=== PATIENT | female | born 1935 | race Caucasian/White ===

== ENCOUNTER 2019-07-27 11:42 | Emergency (ER) | payer MEDICARE ==
--- OUTSIDE RECORDS SUMMARY | 2019-07-27 11:54 | XMS REPORT | Continuity of Care Document ---
:1935 External Reference #:[id number] Author Name Jose G Unger D.O. Address [address] [place] [id number] Care Team Providers Name Role Phone Wali Gallo MD - Neurology Care Team Information Hat Copyist [phone] Delfina Branham MD - Neurology Care Team Information Hat Copyist [facility] - Otolaryngology Care Team Information Hat Copyist [phone] [facility] - Ophthalmology Care Team Information Hat Copyist Problems Active Problems Provider Date Pure hypercholesterolemia Kathia Douglass MD Onset: 01/27/2009 Zenker's diverticulum Azam Jerome M.D. Onset: 10/20/2014 Osteochondropathy Azam Jerome M.D. Onset: 04/16/2010 Diverticular disease of colon Azam Jerome M.D. Onset: 11/24/2010 History of malignant neoplasm of uterine Azam Jerome M.D. 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 Onset: 02/03 Acquired diverticulum of esophagus Azam Jerome M.D. Onset: 05/29/2015 Cognitive disorder Azam Jerome M.D. Onset: 11/27/2015 Note: due to stroke Residual cognitive deficit as late effect Azam Jerome M.D. 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 875-125mg Tablets Vitamin B-12 1 sublingual 90tabs Jose G Unger, 06/21/2019 3000mcg vitamin b12 daily D.O. Tablets Sub Dorzolamide Instill One Drop In Unknown 05/16/2019 HCL/Timolol Maleate Each Eye Two Times A Day To Replace 22.3-6.8mg/ml Combigan Solution Freestyle Lite Blood or any other 1units E11.65 Jose G Unger, 11/27/2018 Glucose Monitoring covered glucometer D.O. System by her insurance. Device Freestyle Precision 1-4 times daily as 100units E11.65 Jose G Unger, 09/2018 Juan Miguel Blood Glucose directed D.O. Test Strips Strips Lancet Device With use with lancets 4 1units E11.65 Jose G Unger, 2018 Ejector times daily to D.O. [facility] check blood glucose with home monitor Lancets Micro Thin use 1-4 times daily 100units E11.65 Jose G Unger, 09/2018 33G as directed D.O. Thin 33G [facility] Multivitamins 1 po qd 100tabs Unknown 10/14/2018 Tablets Polyethylene Glycol 1/2-1 capful in 8 500gm K59.00 Jose G Unger, 2016 1000 oz water daily as D.O. Powder directed for constipation Aspirin 1 by mouth every M75.80 Azam AKimi 04/13/2015 81mg Tablets day Rafael Jerome I69.998 Atorvastatin Calcium take one tablet by 90tabs R20.8 Jose G Unger, 01/09 10mg mouth every day D.O. Tablets I67.89 Vitamin D-3 1a day otc 733.90 Azam Jerome, 04/22/2011 400Unit M.D. Tablets Xalatan both eyes for [facility] 06/21/2007 0.005% Solution glaucoma Immunizations CPT Code Status Date Vaccine Lot # [id number] Given 05/13/2019 Influenza Vaccine Split Virus Preservative Free Im Use (hi-dose) 44845 Given 02/23/2018 Influenza Vaccine Split Virus Preservative Free Im [id number] Use (hi-dose) 46803 Given 03/08/2017 Influenza Vaccine Split Virus Preservative Free Im [id number] Use (hi-dose) 61944 Given 03/28/2016 Influenza Vaccine Split Virus Preservative Free Im [id number] Use (hi-dose) U-Flu Given 04/13/2015 Influenza,Unspecified 44745 Given 03/20/2015 Prevnar 13 [id number] 14788 Given 05/26/2014 Adacel or Boostrix, TDaP [id number] 39677 Given 05/08/2014 Influenza Vaccine Split Virus Preservative Free Im [id number] Use (hi-dose) 80008 Given 04/05/2013 Flu, Split Virus 3Yrs [id number] 91132 Given 04/26/2012 Flu, Split Virus 3Yrs [id number] 19399 Given 04/22/2011 Zostavax [id number] 49189 Given 04/22/2011 Flu, Split Virus 3Yrs [id number] 93823 Given 03/23/2010 Flu, Split Virus 3Yrs 58570 Given 04/27/2009 Pneumococcal Immunization 87335 Given 04/22/2008 Td Immunization [id number] 46512 Given 03/29/2008 Flu, Split Virus 3Yrs 37009 Given 05/03/2007 Flu, Split Virus 3Yrs 31136 Given 06/26/1997 Td Immunization 68134 Given 05/10/1996 Pneumococcal Immunization Vital Signs Date Vital Result Comment 06/24/2019 4:15pm BP Systolic 152 mmHg BP Diastolic 72 mmHg Heart Rate 78 /min O2 % BldC Oximetry 98 % 06/21/2019 10:11am BP Systolic 132 mmHg BP Diastolic 60 mmHg Height 65 inches 5'5" w/shoes Weight 118.00 lb w/shoes BMI (Body Mass Index) 19.6 kg/m2 Results Test Acquired Date Facility Test Result H/L Range Note CBC Auto 06/25/2019 [facility] White Blood 7.6 10^3/uL Normal 3.5- 10.8 Diff [phone] Count Red Blood Count 4.77 10^6/uL Normal 3.70-4.87 Hemoglobin 12.7 g/dL Normal 12.0-16.0 Hematocrit 39 % Normal 35-47 Mean Corpuscular Volume 82 fL Normal 80-97 Mean Corpuscular Hemoglobin 27 pg Normal 27-31 Mean Corpuscular HGB Conc 33 g/dL Normal 31-36 Red Cell Distribution Width 14 % Normal 10-15 Platelet Count 272 10^3/uL Normal 150-450 Mean Platelet Volume 8.9 fL Normal 7.4-10.4 Abs Neutrophils 5.1 10^3/uL Normal 1.5-7.7 Abs Lymphocytes 1.4 10^3/uL Normal 1.0-4.8 Abs Monocytes 0.9 10^3/uL High 0-0.8 Abs Eosinophils 0.2 10^3/uL Normal 0-0.6 Abs Basophils 0.1 10^3/uL Normal 0-0.2 Abs Nucleated RBC 0.0 10^3/uL Granulocyte % 67.0 % Lymphocyte % 17.8 % Monocyte % 11.3 % Eosinophil % 2.7 % Basophil % 1.2 % Nucleated Red Blood Cells % 0.1 Comp Metabolic Panel 06/25/2019 [facility] Sodium 141 mmol/L Normal 135-145 [phone] Potassium 4.3 mmol/L Normal 3.5-5.0 Chloride 105 mmol/L Normal 101-111 Co2 Carbon Dioxide 27 mmol/L Normal 22-32 Anion Gap 9 mmol/L Normal 2-11 Glucose 74 mg/dL Normal 70-100 Blood Urea Nitrogen 13 mg/dL Normal 6-24 Creatinine 0.66 mg/dL Normal 0.51-0.95 BUN/Creatinine Ratio 19.7 Normal 8-20 Calcium 8.7 mg/dL Normal 8.6-10.3 Total Protein 6.3 g/dL Low 6.4-8.9 Albumin 3.5 g/dL Normal 3.2-5.2 Globulin 2.8 g/dL Normal 2-4 Albumin/Globulin Ratio 1.3 Normal 1-3 Total Bilirubin 0.30 mg/dL Normal 0.2-1.0 Alkaline Phosphatase 72 U/L Normal 34-104 Alt 9 U/L Normal 7-52 Ast 14 U/L Normal 13-39 Egfr Non- 85.5 >60 Egfr 103.5 >60 1 Laboratory test 06/25/2019 [facility] Vitamin B12 345 pg/mL Normal 180-914 2 finding [phone] Laboratory test 06/21/2019 In House Hemoglobin A1c 5.7 finding Urine 02/14/2019 [facility] Ur Microalbumin < 15.0 Microalbumin [phone] (mg/L) mg/L Random Urine Creatinine 105.26 mg/dL Urine Microalbumin/Creatinine TNP <31 3 Laboratory test finding 02/14/2019 In House Hemoglobin A1c 5.6 1 Because ethnic data is not always readily available, this report includes an eGFR for both -Americans and non- Americans. The National Kidney Disease Education Program (NKDEP) does not endorse the use of the MDRD equation for patients that are not between the ages of 18 and 70, are , have extremes of body size, muscle mass, or nutritional status, or are non- or non-. According to the National Kidney Foundation, irrespective of diagnosis, the stage of the disease is based on the level of kidney function: Stage Description GFR(mL/min/1.73 m(2)) 1 Kidney damage with normal or decreased GFR 90 2 Kidney damage with mild decrease in GFR 60-89 3 Moderate decrease in GFR 30-59 4 Severe decrease in GFR 15-29 5 Kidney failure <15 (or dialysis) 2 Normal Range 180 to 914 Indeterminate Range 145 to 180 Deficient Range <145 3 Unable to calculate due to low microalbumin Procedures Date Code Description Status 06/21/2019 317140403 Diabetic Foot Exam Completed 12/17/2018 [id number] Diabetic Retinal Eye Exam Completed 11/04/2010 [id number] Colonoscopy Completed Medical Devices Description No Information Available Encounters Type Date Location Provider Dx Diagnosis Office Visit 06/24/2019 Main Office Jose G Unger, R10.9 Unspecified abdominal 3:45p D.O. 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 06/24/2019 R19.7 Diarrhea, unspecified Sopchak, Jose G, D.O. 06/24/2019 E11.65 Type 2 diabetes mellitus with hyperglycemia SopnuriskHieuon , D.O. 06/24/2019 E78.00 Pure hypercholesterolemia, unspecified Sopchak, Jose G, D.O. 06/24/2019 D44.0 Neoplasm of uncertain behavior of thyroid Ogk, Jose G, D.O. gland 06/24/2019 I10 Essential (primary) hypertension S[place]isk Jose G, D.O. 06/24/2019 K22.5 Diverticulum of esophagus, acquired Sopchak, Jose G, D.O. 06/21/2019 Z68.1 Body mass index (BMI) 19.9 or less, adult Hieu Ungeron, D.O. 06/21/2019 E11.65 Type 2 diabetes mellitus with hyperglycemia Sopchak, Jose G , D.O. 06/21/2019 E78.00 Pure hypercholesterolemia, unspecified Sopchak, Jose G, D.O. 06/21/2019 D44.0 Neoplasm of uncertain behavior of thyroid Sopnurisk, Jose G, D.O. gland 06/21/2019 R53.83 Other fatigue Jose G Unger D.O. 06/21/2019 I10 Essential (primary) hypertension Jose G Unger D.O. 02/14/2019 E11.65 Type 2 diabetes mellitus with hyperglycemia Jose G Unger D.O. 02/14/2019 I10 Essential (primary) hypertension Jose G Unger D.O. 02/14/2019 R53.83 Other fatigue Jose G Unger D.O. 02/14/2019 E78.00 Pure hypercholesterolemia, unspecified Jose G Unger D.O. 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 gland 02/14/2019 K22.5 Diverticulum of esophagus, acquired Jose G Unger D.O. 02/14/2019 R19.7 Diarrhea, unspecified Jose G Unger D.O. 02/14/2019 R10.84 Generalized abdominal pain Jose G Unger D.O. Plan of Treatment Future Appointment(s):07/03/2019 2:45 pm - Jose G Unger D.O. at Main Agrbuy9012/23/2019 10:00 am - Jose G Unger D.O. at Main Hdlsbk1512/02/2019 1:30 pm - Jose G Unger D.O. at Main Iihaql1606/21/2019 - Jose G Unger D.O.Z68.1 Body mass index (BMI) 19.9 or less, awujmW69.65 Type 2 diabetes mellitus with hyperglycemiaFollow up:6 months DM w/ A1c, chronic sdeshvsaT99.00 Pure hypercholesterolemia, wdkoipccwdaR07.0 Neoplasm of uncertain behavior of thyroid jvazpV32.83 Other [id number] Essential (primary) hypertension Goals 06/21/2019 - Jose G Unger D.O.E11.65 Type 2 diabetes mellitus with hyperglycemiaToday's A1c: 5.7 Hemoglobin A1C (average glucose) < 7.0 - this is checked every 3 months. Avoid/limit carbohydrates: foods like Potatoes , wheat (bread,pasta,cookies,crackers,pretzles,dough), Rice, corn, and sugar limit sweetened beverages. Check eyes yearly with a dialated exam with an contract preparer Check for diabetic kidney disease yearly with urine microalbumin test Check your feet by looking at all sides daily; once a year at least have them checked by a doctor. Functional Status Description No Information Available Mental Status Description No Information Available Referrals Description No Information Available
[2019-07-27 12:09] VITALS: BP 118/58
[2019-07-27 12:29] LABS: Influenza A Molecular Negative (Negative); Influenza B Molecular Negative (Negative)
--- NOTE | 2019-07-27 12:39 | UC ---
UC General HPI - HPI Summary HPI Summary: Pt presents with c/o feeling weak, fatigued and generalized malaise X 2 days. Pt has been treated for C-diff and given vancomycin and flagyl two weeks ago but continues to have frequent diarrhea. Pt has not had stool tested again. - History of Current Complaint Chief Complaint: UCGeneralIllness Stated Complaint: BODY ACHES/SHAKES Time Seen by Provider: 07/27/19 12:28 Hx Obtained From: Patient Onset/Duration: Gradual Onset, Lasting Days, Still Present, Worse Since - onset Timing: Constant Onset Severity: Mild Current Severity: Moderate Pain Intensity: 0 Associated Signs & Symptoms: Positive: Diarrhea, Weakness Related Hx: Recent Illness, Recent Hospitalization - Allergy/Home Medications Allergies/Adverse Reactions: Allergies Allergy/AdvReac Type Severity Reaction Status Date / Time No Known Allergies Allergy Verified 07/27/19 12:07 Home Medications: Home Medications [id number] Es (Nf) [Excedrin Extra Strength 250-250-65 mg (NF)] 1 tab PO Q12H PRN 07/27/19 [History Confirmed 07/27/19] PMH/Surg Hx/FS Hx/Imm Hx Previously Healthy: Yes Cardiovascular History: Cardiac Disease GI/ History: Other - C-Diff - Surgical History Surgical History: Yes Surgery Procedure, Year, and Place: APPY/D&C/T&A/HYSTERECTOMY - Family History Known Family History: Positive: Cardiac Disease - Social History Occupation: Retired Lives: With Family Alcohol Use: Rare Substance Use Type: None Smoking Status (MU): Never Smoked Tobacco Have You Smoked in the Last Year: No - Immunization History Most Recent Influenza Vaccination: 2013 Most Recent Tetanus Shot: current Most Recent Pneumonia Vaccination: current Vaccination Up to Date: Yes Review of Systems All Other Systems Reviewed And Are Negative: Yes Constitutional: Positive: Chills, Fatigue Skin: Positive: Negative Eyes: Positive: Negative ENT: Positive: Negative Respiratory: Positive: Negative Cardiovascular: Positive: Negative Gastrointestinal: Positive: Diarrhea Genitourinary: Positive: Negative Neurovascular: Positive: Negative Musculoskeletal: Positive: Myalgia Neurological: Positive: Weakness Psychological: Positive: Negative Is Patient Immunocompromised?: No Physical Exam Triage Information Reviewed: Yes Appearance: Ill-Appearing - pale, thin Vital Signs: Initial Vital Signs Temp 98 F 07/27/19 12:00 Pulse 86 02/01/20 12:00 Resp 18 07/27/19 12:00 BP 118/58 07/27/19 12:00 Pulse Ox 100 07/27/19 12:00 Vital Signs Reviewed: Yes Eye Exam: Normal ENT Exam: Normal Dental Exam: Normal Neck exam: Normal Respiratory: Positive: No respiratory distress Musculoskeletal Exam: Normal Neurological Exam: Normal Psychological Exam: Normal Skin Exam: Normal Course/Dx - Course Course Of Treatment: I discussed with the pt the need for further examination and testing at a higher level of care facility. Pt verbalized understanding. Additionally, I discussed with the pt her BG at 194 at time of visit. Pt stated that she last ate cereal and orange juice at 0800 today. BG was taken at 1230 today - Differential Dx - Multi-Symptom Differential Diagnoses: Metabolic Abnormality, Urinary Tract Infection - Diagnoses Provider Diagnosis: Weakness, Hx of Clostridium difficile infection, Diarrhea, Elevated random blood glucose level Discharge ED - Sign-Out/Discharge Documenting (check all that apply): Patient Departure All imaging exams completed and their final reports reviewed: No Studies - Discharge Plan Condition: Stable Disposition: HOME-RECOMMEND TO ED Patient Education Materials: Acute Diarrhea (ED), Weakness (ED) Referrals: Jose G Unger DO [Primary Care Provider] - As Soon As Possible Additional Instructions: Please go directly to the closest emergency room for further evaluation and testing. - Billing Disposition and Condition Condition: STABLE Disposition: Home-Recommend to ED - Attestation Statements Provider Attestation: I was available for consult. This patient was seen by the JENNIFER. The patient was not presented to , seen by or examined by mo -Saul Jimenez MD
== END 2019-07-27 12:50 | disposition home health service (06) ==
LOC: UCCORT 11:42
DX: R53.1 Weakness (principal); R19.7 Diarrhea, unspecified; R73.09 Other abnormal glucose; R53.83 Other fatigue; Z86.19 Personal history of other infectious and parasitic diseases
CPT/HCPCS: 99212; G0463